=== PATIENT | male | born 1970 | race Caucasian/White ===

== ENCOUNTER 2023-11-19 13:01 | Emergency (ER) | payer OTHER, SELFPAY ==
[2023-11-19 13:12] VITALS: BP 157/87
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
[2023-11-19] MEDS: ADACEL 0.5 ML IM (14:21)
== END 2023-11-19 14:36 | disposition home or self-care (01) ==
LOC: EMR 13:01
PROVIDERS: EMERGENCY PHYSICIAN Emergency Medicine; FAMILY PHYSICIAN Family Medicine
DX: S43.004A Unspecified dislocation of right shoulder joint, initial encounter (principal); V19.3XXA Pedal cyclist (driver) (passenger) injured in unspecified nontraffic accident, initial encounter; Y93.55 Activity, bike riding; R03.0 Elevated blood-pressure reading, without diagnosis of hypertension; Z23 Encounter for immunization
CPT/HCPCS: 99283; 90471; 73030; 90715